=== PATIENT | female | born 1960 | race Caucasian/White ===

== ENCOUNTER 2022-01-27 10:24 | Outpatient (CLI) | payer BC ==
[~2022-01-27 10:24] MED LIST: Magnevist 469MG/ML 20 ML VIAL ONE
== END 2022-01-27 10:25 | disposition home or self-care (01) ==
LOC: CSHMRI 10:24
PROVIDERS: ATTEND Radiology Radiation Oncology
DX: D32.9 Benign neoplasm of meninges, unspecified (principal); D32.0 Benign neoplasm of cerebral meninges
CPT/HCPCS: 70553; 82565